=== PATIENT | female | born 1980 | race African-American/Black ===

== ENCOUNTER 2017-01-04 12:05 | Emergency (ER) | payer BC ==
[~2017-01-04] VITALS: Ht 170.2 cm; Wt 63.5 kg
--- NOTE | ~2017-01-04 | EKG ---
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
[2017-01-04 12:34] LABS: HEMATOCRIT 26.2 % (37.0-47.0); MCHC 30.6 g/dL (28.0-37.0); MCV 65.1 fL (80.0-100.0); PLATELET COUNT 128 thou/uL (150-400); RBC 4.02 mil/uL (4.20-5.00); RDW 21.4 % (10.5-14.5); WBC 2.8 thou/uL (4.0-11.0)
[2017-01-04 12:36] LABS: MANUAL DIFF YES
[2017-01-04 12:45] LABS: ANION GAP 10 mmol/L (7-16); BUN 11 mg/dL (7-18); CALCIUM 9.1 mg/dL (8.5-10.1); CHLORIDE 105 mmol/L (98-107); CO2 24 mmol/L (21-32); CREATININE 0.8 mg/dL (0.6-1.0); GLUCOSE 97 mg/dL (74-106); POTASSIUM 3.3 mmol/L (3.5-5.1); SODIUM 139 mmol/L (136-145)
[2017-01-04 12:54] LABS: TROPONIN-I < 0.04 ng/mL (<0.04-0.07)
[2017-01-04 13:05] LABS: ABSOLUTE NEUTROPHILS 1.3 thou/uL (1.4-8.2); ANISOCYTOSIS 1+; HYPOCHROMASIA 1+; LARGE PLATELETS OCCASIONAL; MICROCYTES 2+; POIKILOCYTOSIS SLIGHT; TOTAL CELL COUNT 100
[2017-01-04 15:04] VITALS: BP 92/50
== END 2017-01-04 15:53 | disposition home or self-care (01) ==
LOC: ER 12:05
PROVIDERS: Emergency Medicine
DX: R07.89 Other chest pain (principal)